=== PATIENT | female | born 1945 | race African-American/Black ===

== ENCOUNTER 2017-04-26 07:54 | Emergency (ER) | payer MEDICARE, OTHER, MEDICAID ==
[~2017-04-26] VITALS: Ht 167.6 cm; Wt 90.0 kg
[~2017-04-26 07:54] MED LIST: ISOSORBIDE; LASIX
[2017-04-26 10:08] LABS: BASOPHILS % 1.2 % (0.0-2.0); EOSINOPHILS % 2.8 % (0.0-5.0); HEMOGLOBIN. 14.4 g/dL (12.0-16.0); LYMPHOCYTES % 35.4 % (20.0-50.0); MEAN CORPUSCULAR HEMOGLOBIN 31.9 pg (28.0-32.0); MEAN CORPUSCULAR VOLUME 95.5 fL (81.0-99.0); MONOCYTES % 8.2 % (2.0-8.0); NEUTROPHILS % 52.4 % (40.0-76.0); PLATELET 347 x1000/uL (130-400); RED BLOOD CELL COUNT 4.51 mill/uL (4.2-5.4); RED CELL DISTRIBUTION WIDTH 13.9 % (11.6-14.6)
[2017-04-26 10:10] LABS: PARTIAL THROMBOPLASTIN TIME 26.1 sec (23.4-31.0); PROTHROMBIN TIME 10.2 sec (9.4-11.6)
[2017-04-26 10:18] LABS: CARBON DIOXIDE 33 mEq/L (21-32); CHLORIDE 99 mEq/L (98-107)
[2017-04-26 10:19] LABS: TROPONIN I < 0.02 ng/mL (0.00-0.04)
[2017-04-26 11:28] VITALS: BP 156/88
== END 2017-04-26 11:29 | disposition home or self-care (01) ==
LOC: ER 08:16
DX: I47.1 Supraventricular tachycardia (principal); I10 Essential (primary) hypertension; R53.1 Weakness; R00.2 Palpitations; R42 Dizziness and giddiness
CPT/HCPCS: 36415; 71010; 80053; 83690; 84484; 85025; 85610; 85730; 93005; 99285